=== PATIENT | male | born 1990 | race Caucasian/White ===

== ENCOUNTER 2017-12-25 13:58 | Emergency (ER) | payer OTHER ==
[~2017-12-25] VITALS: Ht 185.4 cm; Wt 66.3 kg
[2017-12-25 14:41] LABS: HEMATOCRIT 45.6 % (38.0-50.0); HEMOGLOBIN 15.7 G/DL (12.5-16.6); MCH 31.3 PG (29.0-34.0); MCHC 34.4 G/DL (30.0-36.0); PLATELET COUNT 265 K/uL (156-360); RBC DIS.WIDTH-CV 11.8 % (11.8-14.6); RBC DIS.WIDTH-SD 39.5 % (39-53); RED BLOOD COUNT 5.01 M/uL (4.00-5.50)
[2017-12-25 14:53] LABS: CHLORIDE 103 mEq/L (99-109); POTASSIUM 4.8 mEq/L (3.7-5.4); SODIUM 138 mEq/L (136-147)
[2017-12-25 14:55] LABS: GLUCOSE 67 mg/dL (70-99)
[2017-12-25 14:59] LABS: CREATININE 0.9 mg/dL (0.6-1.3)
[2017-12-25 15:00] LABS: UREA NITROGEN (BUN) 17 mg/dL (9-23)
[2017-12-25 15:08] LABS: TROP-I INTERPRETATION NEGATIVE; TROPONIN-I < 0.01 ng/mL (0.0-0.30)
[2017-12-25 15:09] LABS: GFR ESTIMATE (CALCULATED) > 59 mL/min/ (58.99-99999)
[2017-12-25] MEDS ORDERED: INDOCIN50 MG PO (17:57)
[2017-12-25 18:09] VITALS: BP 127/81
== END 2017-12-25 18:20 | disposition home or self-care (01) ==
LOC: EME 13:58
DX: R07.89 Other chest pain (principal); F11.10 Opioid abuse, uncomplicated; B19.20 Unspecified viral hepatitis C without hepatic coma; F17.200 Nicotine dependence, unspecified, uncomplicated
CPT/HCPCS: 71046; 80048; 84484; 85027; 93005; 99281; 99283

== ENCOUNTER 2018-02-27 19:09 | Emergency (ER) | payer OTHER ==
[~2018-02-27] VITALS: Ht 185.4 cm; Wt 66.5 kg
[~2018-02-27 19:09] MED LIST: INDOCIN50 MG PO
[2018-02-27] MEDS ORDERED: MOTRIN800 MG PO (19:41)
[2018-02-27] MEDS ORDERED: PEN-VEE K,VEET500 MG PO (19:41)
[2018-02-27 19:50] VITALS: BP 129/79
== END 2018-02-27 19:50 | disposition home or self-care (01) ==
LOC: EME 19:09
PROC: 0C9WXZ0 Drainage of Upper Tooth, External Approach, Single (ICD-10-PCS; principal; 2018-02-27)
DX: K08.89 Other specified disorders of teeth and supporting structures (principal); K02.9 Dental caries, unspecified; F17.200 Nicotine dependence, unspecified, uncomplicated; Z71.6 Tobacco abuse counseling
CPT/HCPCS: 99281; 99283

== ENCOUNTER 2018-06-03 12:29 | Emergency (ER) | payer OTHER ==
[~2018-06-03] VITALS: Ht 185.4 cm; Wt 66.1 kg
[~2018-06-03 12:29] MED LIST changes: +MOTRIN800 MG PO; +PEN-VEE K,VEET500 MG PO
[2018-06-03 13:11] LABS: APPEARANCE SL.HAZY ((CLEAR)); BILIRUBIN NEGATIVE; BLOOD NEGATIVE; COLOR AMBER ((YELLOW)); GLUCOSE (STRIP) NEGATIVE; KETONES NEGATIVE; LEUKOCYTES NEGATIVE; NITRITE NEGATIVE; PROTEIN (STRIP) 30; SPECIFIC GRAVITY 1.033 (1.000-1.030); UROBILINOGEN 0.2 MG/DL (0.2-1.0)
[2018-06-03 13:15] LABS: BACTERIA NONE SEEN /HPF; EPITHELIAL CELLS RARE /HPF; HYALINE CASTS 0-5 /LPF; MUCUS 4+ /LPF; RED BLOOD CELLS 0-5 /HPF (0-5); UCUL ADDED? NO; WHITE BLOOD CELLS 0-5 /HPF (0-5)
[2018-06-03 13:32] LABS: HEMATOCRIT 43.2 % (38.0-50.0); HEMOGLOBIN 14.8 G/DL (12.5-16.6); MCHC 34.3 G/DL (30.0-36.0); MCV 90.6 FL (86-99); PLATELET COUNT 243 K/uL (156-360); RBC DIS.WIDTH-CV 11.9 % (11.8-14.6); RBC DIS.WIDTH-SD 39.6 % (39-53); RED BLOOD COUNT 4.77 M/uL (4.00-5.50); WHITE BLOOD COUNT 7.9 K/uL (4.1-10.2)
[2018-06-03 13:57] LABS: ALBUMIN 4.4 G/DL (3.2-4.8); ALKALINE PHOSPHATASE 63 IU/L (3-129); ALT (GPT) 37 IU/L (3-49); AST (GOT) 25 IU/L (2-34); CHLORIDE 99 MEQ/L (99-109); CREATININE 0.8 MG/DL (0.6-1.3); GFR ESTIMATE (CALCULATED) > 59 mL/min/ (58.99-99999); GLUCOSE 76 mg/dL (70-99); POTASSIUM 4.6 MEQ/L (3.7-5.4); SODIUM 136 MEQ/L (136-147); TOTAL BILIRUBIN 0.5 MG/DL (0.0-1.0); TOTAL PROTEIN 6.9 G/DL (6.4-8.3); UREA NITROGEN (BUN) 17 mg/dL (9-23)
[2018-06-03] MEDS ORDERED: ZOFRAN ODT4 MG PO (17:22)
[2018-06-03 17:30] VITALS: BP 118/70
== END 2018-06-03 17:31 | disposition home or self-care (01) ==
LOC: EME 12:29
DX: K52.89 Other specified noninfective gastroenteritis and colitis (principal); R11.2 Nausea with vomiting, unspecified; R19.7 Diarrhea, unspecified; Z86.19 Personal history of other infectious and parasitic diseases; F17.200 Nicotine dependence, unspecified, uncomplicated
CPT/HCPCS: 74177; 80053; 81003; 85027; 99281; 99285; J2405; J7030